=== PATIENT | female | born 1950 | race Caucasian/White ===

== ENCOUNTER 2017-05-10 07:40 | Day surgery (SDC) | payer MEDICARE, BC ==
[2017-05-10] MEDS ORDERED: MIDAZOLAM 1 MG/ML 2 ML INJ (10:19)
[2017-05-10] MEDS ORDERED: PROPOFOL 20 ML (10:21)
[2017-05-10] MEDS: EPINEPHrine 1 MG INJ (11:03)
== END 2017-05-10 13:40 | disposition home or self-care (01) ==
LOC: SDS 07:40
DX: H66.92 Otitis media, unspecified, left ear (principal); I10 Essential (primary) hypertension
CPT/HCPCS: 69436; 88304